=== PATIENT | female | born 1950 | race Caucasian/White ===

== ENCOUNTER 2020-08-18 17:04 | Emergency (ER) | payer MEDICARE ==
[2020-08-18 17:41] LABS: BILIRUBIN,URINE NEGATIVE (NEGATIVE); GLUCOSE, URINE (UA) NEGATIVE (NEGATIVE); KETONES,URINE (UA) 15 mg/dL (NEGATIVE); LEUKOCYTE ESTERASE, URINE NEGATIVE (NEGATIVE); NITRITE,URINE NEGATIVE (NEGATIVE); OCCULT BLOOD,URINE LARGE (NEGATIVE); PROTEIN,URINE TRACE mg/dL (NEGATIVE); UROBILINOGEN,URINE 0.2 (NORMAL) E.U./dL (NORMAL)
[2020-08-18 17:45] LABS: CLARITY,URINE CLEAR (CLEAR)
[2020-08-18 17:53] LABS: BACTERIA,URINE Rare /HPF (None Seen); RBC,URINE TNTC /HPF (0-5); SQUAMOUS EPITHELIAL CELL,UR RARE Squamous (<= Few)
--- NOTE | 2020-08-18 18:02 | ED Physician Documentation ---
History of Present Illness - Stated complaint Stated Complaint: ABD PX - Chief complaint Chief Complaint: Abd Pain - History obtained from History obtained from: Patient - History of Present Illness Timing: Prior to arrival - Additonal information Additional information: 70-year-old female presents to the emergency department for evaluation of 3 to 4 days left-sided abdominal pain. She does report bumping her lower abdomen on a table recently and she does have a bruise there but is unsure if it is the cause of her symptoms. Over the last few days she has had some nausea but no vomiting. She has had no black or bloody stools but has been having diarrhea. She has no cough, congestion dysuria urgency or frequency. Past medical history includes hypertension and hyperlipidemia. She also had breast cancer in 2009 for which she ultimately required a double mastectomy, radiation and chemotherapy. She also completed 5 years of tamoxifen Pt recently moved to [facility] with her from [place] Review of Systems Constitutional: reports: Reviewed and negative Eyes: reports: Reviewed and negative Ears: reports: Reviewed and negative Nose: reports: Rhinorrhea / runny nose Throat: reports: Reviewed and negative Cardiac: reports: Reviewed and negative Respiratory: reports: Reviewed and negative GI: reports: Abdominal Pain, Nausea, Diarrhea. denies: Vomiting, Constipation, Hematemesis, Bloody / black stool : denies: Dysuria, Frequency, Hesitancy Skin: reports: Abrasion (s) (bruising LLQ abdomen) Musculoskeletal: reports: Reviewed and negative Neurologic: reports: Reviewed and negative PD PAST MEDICAL HISTORY - Past Medical History Past Medical History: Yes Musculoskeletal: Osteoarthritis Other Past Medical History: Breast CA eight years ago. Bilateral mastectomy. - Past Surgical History Past Surgical History: Yes Ortho: Shoulder arthroplasty /[employer]: section, Mastectomy - Present Medications Home Medications: Ambulatory Orders Medication Instructions Recorded Confirmed Ibuprofen [Motrin] 400 mg PO TID PRN #25 tablet 08/18/20 - Allergies Allergies/Adverse Reactions: Allergies Allergy/AdvReac Type Severity Reaction Status Date / Time codeine AdvReac Hallucinati Verified 08/18/20 17:12 ons - Social History Does the pt smoke?: No Smoking Status: Never smoker Does the pt drink ETOH?: No Does the pt have substance abuse?: No - Immunizations Immunizations are current?: No - POLST Patient has POLST: No PD ED PE EXPANDED - General General: Alert, No acute distress, Well developed/nourished - Neck Neck: Supple w/out meningeal sx, No tenderness. No: Limited ROM - Cardiac Cardiac: Regular Rate, Radial strong equal, Pedal strong equal, Cap refill < 2 sec - Respiratory Respiratory: Clear to ausultation srikanth. No: Distress, Labored - Abdomen Abdomen: Normal Bowel sounds, Tender to palpation, LLQ (Mild tenderness left lower quadrant without guarding or rebound.) - Derm Derm: Bruising (Left lower quadrant of abdomen) - Extremities Extremities: Normal - Neuro Neuro: CNII-XII intact, Normal gait, Normal finger nose, Normal speech - GCS Eye Opening: Spontaneous Motor: Obeys Commands Verbal: Oriented Total: 15 Results - Vitals Vitals: Vital Signs - 24 hr 08/18/20 17:12 Temperature 37.4 C Heart Rate 76 Respiratory 18 Rate Blood Pressure 145/73 H O2 Saturation 97 Oxygen O2 Source Room air - Labs Labs: Laboratory Tests 08/18/20 08/18/20 08/18/20 17:30 18:05 18:05 WBC 13.1 H RBC 4.47 Hgb 13.9 Hct 40.6 MCV 90.8 MCH 31.1 H MCHC 34.2 RDW 12.5 Plt Count 231 MPV 10.9 H Neut # (Auto) 11.0 H Lymph # (Auto) 1.1 L [place] # (Auto) 0.9 Eos # (Auto) 0.0 Baso # (Auto) 0.0 Absolute Nucleated RBC 0.00 Nucleated RBC % 0.0 Sodium 139 Potassium 3.4 L Chloride 98 L Carbon Dioxide 25 Anion Gap 16.0 H BUN 16 Creatinine 1.2 H Estimated GFR (MDRD) 44 L Glucose 118 H Calcium 9.2 Total Bilirubin 0.8 AST 21 ALT 21 Alkaline Phosphatase 87 Total Protein 7.4 Albumin 4.0 Globulin 3.4 Albumin/Globulin Ratio 1.2 Lipase 48 Urine Color YELLOW Urine Clarity CLEAR Urine pH 6.0 Ur Specific [place] 1.020 Urine Protein TRACE Urine Glucose (UA) NEGATIVE Urine Ketones 15 H Urine Occult Blood LARGE H Urine Nitrite NEGATIVE Urine Bilirubin NEGATIVE Urine Urobilinogen 0.2 (NORMAL) Ur Leukocyte Esterase NEGATIVE Urine RBC TNTC H Urine WBC 0-3 Ur Squamous Epith Cells RARE Squamous Urine Bacteria Rare Ur Microscopic Review INDICATED Urine Culture Comments NOT INDICATED - Rads (name of study) CT abd Radiology: Final report received (4.5 mm left UPJ stone with moderate left-sided hydronephrosis and perinephric fat stranding. Multiple nonobstructing right renal calculi. No right-sided hydronephrosis. Normal appendix. No bowel obstruction no evidence of appendicitis or diverticulitis. No free fluid or air. Likely hepatic cys) PD MEDICAL DECISION MAKING - ED course Complexity details: reviewed results, re-evaluated patient, considered differential, d/w patient, d/w family ED course: 70-year-old female presents to the emergency department for evaluation of 3 days acute onset left flank pain and left lower quadrant abdominal pain. She initially had some mild leukocytosis but no fevers. She also expressed diarrhea. Past surgical history is significant for a only. A CT of her abdomen was performed and it does show a left UPJ stone with moderate left- sided hydronephrosis and perinephric fat stranding. There is no sign of infection in her urine. Patient was given Toradol here in the emergency department with moderate relief of pain. Her renal function is preserved. These findings were discussed at length with the patient and her . We did advise that she follow-up closely with urologist Dr. Frank in [place]. 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 The CT scan shows that you have stones in both of your kidneys. However there is a stone in your left ureter that is causing the pain and swelling of the left kidney. This is small enough that I suspect it will likely pass. I would like you to drink a lot of fluid and stay hydrated. To help with pain I would like you to take ibuprofen 400 mg with food 2-3 times a day. Please call Dr. Frank in [place] to schedule follow-up of your kidney stones and swelling of the kidney. If at any point you have fevers, suddenly severe or different pain, uncontrolled vomiting please return to the emergency department
[2020-08-18 18:14] LABS: BASOPHILS % (AUTO) 0.2 %; EOSINOPHILS % (AUTO) 0.3 %; HGB - HEMOGLOBIN 13.9 g/dL (12.0-16.0); LYMPHOCYTES # (AUTO) 1.1 10^3/uL (1.5-3.5); LYMPHOCYTES % (AUTO) 8.4 %; MEAN CORPUSCULAR HEMOGLOBIN 31.1 pg (27.0-31.0); MEAN CORPUSCULAR HGB CONC 34.2 g/dL (32.0-36.0); MEAN CORPUSCULAR VOLUME 90.8 fL (81.0-99.0); MEAN PLATELET VOLUME 10.9 fL (7.9-10.8); MONOCYTES # (AUTO) 0.9 10^3/uL (0.0-1.0); MONOCYTES % (AUTO) 6.9 %; NEUTROPHILS % (AUTO) 83.7 %; PLT - PLATELET COUNT 231 10^3/uL (130-450); RED BLOOD COUNT 4.47 10^6/uL (4.20-5.40); RED CELL DISTRIBUTION WIDTH 12.5 % (12.0-15.0); WHITE BLOOD COUNT 13.1 x10^3/uL (4.8-10.8)
[2020-08-18 18:26] LABS: ALBUMIN/GLOBULIN RATIO 1.2 (1.0-2.2); BILIRUBIN,TOTAL 0.8 mg/dL (0.2-1.0); CALCIUM 9.2 mg/dL (8.5-10.3); CREATININE 1.2 mg/dL (0.4-1.0); TOTAL PROTEIN 7.4 g/dL (6.7-8.2)
[2020-08-18] MEDS ORDERED: IOVERSOL 320 100 ML VIAL IVP ONE ×2 (18:31→18:51)
--- NOTE | 2020-08-18 19:06 | CT Report ---
PROCEDURE: Abdomen/Pelvis W INDICATIONS: LLQ abdominal pain CONTRAST: IV CONTRAST: Optiray 320 ml: 100 PO CONTRAST: *NO PO CONTRAST TECHNIQUE: After the administration of IV contrast, 5 mm thick sections acquired from the diaphragms to the symp hysis. 5 mm thick coronal and sagittal reformats were acquired. For radiation dose reduction, the f ollowing was used: automated exposure control, adjustment of mA and/or kV according to patient size. COMPARISON: None. FINDINGS: Image quality: Excellent. ABDOMEN: Lung bases: Scattered bibasilar atelectasis is seen. Heart size is normal. Solid organs: Liver is normal in size. Innumerable well-circumscribed hypodensities are seen scattere d throughout liver parenchyma and measures up to 1.1 cm in medial segment of left hepatic lobe and ma y represent hepatic cysts. Gallbladder is within normal limits. Spleen is normal in size and enhancem ent. Biliary system is non dilated. Pancreas enhances normally. No adrenal nodules. Left kidney shows normal size and enhancement without hydronephrosis. 4 mm nonobstructing stone is no mita in mid pole of right kidney. Large nonobstructing stone in mid to lower pole of right kidney is a lso seen measures 1.5 x 0.7 cm in size. There is moderate left-sided hydronephrosis and perinephric f at stranding. 4.5 mm left UPJ stone is seen. Bilateral ureters are within normal limits. Peritoneum and bowel: Bowel loops demonstrate normal wall thickness and caliber. No free fluid or a ir. Appendix is visualized and is within normal limits. No evidence of acute appendicitis or diverti culitis. Nodes and vessels: No retroperitoneal or mesenteric adenopathy by size criteria. Aorta and inferior vena cava are normal in size. Miscellaneous: No ventral hernias. PELVIS: Genitourinary: Bladder wall thickness is normal. Miscellaneous: No inguinal hernias or adenopathy. Bones: No suspicious bony lesions. No vertebral body compression fractures. IMPRESSION: 1. 4.5 mm left UPJ stone with moderate left-sided hydronephrosis and perinephric fat stranding. 2. Multiple nonobstructing right renal calculi. No right-sided hydronephrosis. 3. Normal appendix. No bowel obstruction. No evidence of acute appendicitis or diverticulitis. No josie e fluid of free air. 4. Innumerable well-circumscribed hypodensities scattered throughout liver parenchyma as above, which may represent hepatic cysts. Reviewed by: Nadeem Rowland MD on 08/18/2020 6:04 PM [facility] Approved by: Nadeem Rowland MD on 08/18/2020 6:04 PM [facility] Station ID: [id number]
[2020-08-18] MEDS ORDERED: KETOROLAC 30 MG/ML VIAL IVP STA (19:23)
[2020-08-18 19:57] VITALS: BP 138/69
== END 2020-08-18 20:06 | disposition home or self-care (01) ==
LOC: ED 17:04
DX: N13.2 Hydronephrosis with renal and ureteral calculous obstruction (principal); R19.7 Diarrhea, unspecified; S30.1XXA Contusion of abdominal wall, initial encounter; W22.03XA Walked into furniture, initial encounter; I10 Essential (primary) hypertension; E78.5 Hyperlipidemia, unspecified; Z08 Encounter for follow-up examination after completed treatment for malignant neoplasm; Z85.3 Personal history of malignant neoplasm of breast
CPT/HCPCS: 36415; 74177; 80053; 81001; 83690; 85025; 96374; 99284; Q9967; 81003; 87086

== ENCOUNTER 2021-08-11 12:25 | Outpatient (CLI) | payer MEDICARE ==
--- NOTE | 2021-08-22 10:26 | Ultrasound Report ---
LIMITED ULTRASOUND OF LEFT BREAST: 08/11/2021 CLINICAL: Palpable left breast lump. No prior exams were available for comparison. Color flow and real-time ultrasound of the left breast were performed. Randall scale images of the surinder l-time examination were reviewed. Status post left mastectomy. No sonographic abnormalities visualized at the patient directed area of palpable concern at the 4 o'clock position/lower outer quadrant. This is in area of prior surgical sc ar. IMPRESSION: NEGATIVE There is no sonographic evidence of malignancy. There is no abnormality seen in the left breast to correspond with the area of clinical concern and p alpable abnormality at 4 o'clock position along the chest wall in area of prior surgery, however, rec ommend clinical follow up for persistent or worsening symptoms, or development of any clinically susp icious findings. Findings and recommendations were conveyed to the patient during today's evaluation. This exam was interpreted at Station ID: [id number]. Electronically Signed By: Todd Holloway M.D. aty/:08/19/2021 17:39:19 Ultrasound BI-RADS: 1 Negative BI-RADS CATEGORY: (1) - 1 Unspecified - other recall n/a LATERALITY: (B)
== END 2021-08-11 12:26 | disposition home or self-care (01) ==
LOC: DI 12:25
PROVIDERS: ATTEND Internal Medicine
DX: N63.23 Unspecified lump in the left breast, lower outer quadrant (principal)

== ENCOUNTER 2021-10-03 13:00 | Outpatient (CLI) | payer MEDICARE ==
--- NOTE | 2021-10-03 13:37 | XRAY Report ---
PROCEDURE: Wrist 3 View LT INDICATIONS: LEFT WRIST PAIN TECHNIQUE: 3 views of the wrist were acquired. COMPARISON: None. FINDINGS: BONES: No acute, displaced fracture or dislocation. The carpal bones are normally aligned. Moderate o steophytosis of the first carpal metacarpal articulation. SOFT TISSUES: No focal abnormality. IMPRESSION: 1.No acute osseous abnormality. Reviewed by: Mo Juan MD on 10/03/2021 1:35 PM [facility] Approved by: Mo Juan MD on 10/03/2021 1:35 PM [facility] Station ID: [id number]
== END 2021-10-03 23:59 | disposition home or self-care (01) ==
LOC: DI.N 13:00
PROVIDERS: ATTEND Physician Assistant
DX: M25.532 Pain in left wrist (principal)

== ENCOUNTER 2023-05-23 08:52 | Day surgery (SDC) | payer MEDICARE ==
[2023-05-23] MEDS ORDERED: LACTATED RINGERS 1,000 ML IV ONE ×2 (09:21→10:48)
--- NOTE | 2023-05-23 09:31 | ANESTHESIA ---
Pre-Anesthesia VS, & Labs - Diagnosis screeing - Procedure colonoscopy Vital Signs: Temp Pulse Resp BP Pulse Ox O2 Flow Rate 36.3 C L 76 16 154/72 H 96 05/23/23 09:15 05/23/23 09:15 05/23/23 09:15 05/23/23 09:15 05/23/23 09:15 Height: 5 ft 3 in Weight (kg): 64 kg Body Mass Index: 25.0 BMI Classification: Overweight - NPO >8 hours - Is Patient ?: No Home Medications and Allergies Home Medications: Ambulatory Orders Metoprolol Succinate 125 mg PO DAILY 05/22/23 Pravastatin [Pravachol] 80 mg PO DAILY 05/22/23 Metoprolol Succinate 125 mg PO DAILY 05/22/23 Pravastatin [Pravachol] 80 mg PO DAILY 05/22/23 Allergies/Adverse Reactions: Allergies Allergy/AdvReac Type Severity Reaction Status Date / Time codeine AdvReac Hallucinati Verified 05/23/23 09:13 ons Anes History & Medical History - Anesthetic History Anesthesia Complications: reports: No previous complications Family history of Anesthesia Complications: Denies Family history of Malignant Hyperthermia: Denies - Medical History Cardiovascular: reports: Hypertension, High cholesterol Pulmonary: reports: None Gastrointestinal: reports: None Urinary: reports: None Musculoskeletal: reports: Osteoarthritis, Osteopenia Endocrine/Autoimmune: reports: None Skin: reports: None Smoking Status: Never smoker - Surgical History Gynecologic: reports: Mastectomy, Other Orthopedic: reports: Shoulder arthroplasty Exam General: Alert, Oriented x3, Cooperative Dental: WNL Mouth Openin Fingerbreadth Neck Mobility: Normal Mallampati classification: I Thyromental Distance: 4-6 cm Respiratory: Lungs clear Cardiovascular: Regular rate Plan Anesthesia Type: General, Total IV Consent for Procedure(s) Verified and Reviewed: Yes Code Status: Attempt Resuscitation ASA classification: 2-Mild systemic disease Is this case an emergency?: No
[2023-05-23 11:10] VITALS: BP 132/67; O2SAT 97
--- NOTE | 2023-05-23 13:20 | ANESTHESIA POST OP EVALUATION ---
Anesthesia Post Eval - Post Anesthesia Eval Vitals: Last Vital Signs Temp 36.0 C L 05/23/23 11:07 Pulse 74 05/23/23 11:07 Resp 16 05/23/23 11:07 BP 132/67 H 05/23/23 11:07 Pulse Ox 97 05/23/23 11:07 O2 Flow Rate CV Function Including HR & BP: Stable Pain Control: Satisfactory Nausea & Vomiting: Negative Mental Status: Baseline Respiratory Status: Airway Patent Hydration Status: Satisfactory Anesthesia Complications: None
== END 2023-05-23 08:53 | disposition home or self-care (01) ==
LOC: SDS 08:52
PROVIDERS: ATTEND Surgery
PROC: 0DBK8ZX Excision of Ascending Colon, Via Natural or Artificial Opening Endoscopic, Diagnostic (ICD-10-PCS; principal; 2023-05-23 10:00)
DX: Z12.11 Encounter for screening for malignant neoplasm of colon (principal); D12.2 Benign neoplasm of ascending colon; K63.89 Other specified diseases of intestine; Z80.0 Family history of malignant neoplasm of digestive organs; I10 Essential (primary) hypertension
CPT/HCPCS: 45385; J7120

== ENCOUNTER 2023-12-20 16:00 | Outpatient (CLI) | payer MEDICARE ==
--- NOTE | 2023-12-20 18:55 | XRAY Report ---
PROCEDURE: Hip w/Pelvis 2-3V RT INDICATIONS: BACK PAIN TECHNIQUE: An AP view of the pelvis and a frog-leg lateral view of the hip were acquired. COMPARISON: None. FINDINGS: Bones: No fractures or dislocations. No suspicious bony lesions. Moderate to severe degenerative ar thritis with severe axial joint space loss and osteophytes. Soft tissues: No suspicious soft tissue calcifications or masses. IMPRESSION: Moderate to severe degenerative arthritis of the right hip Reviewed by: Randolph Griffith MD on 12/20/2023 6:53 PM PDT Approved by: Randolph Griffith MD on 12/20/2023 6:53 PM PDT Station ID: [id number]
== END 2023-12-20 16:01 | disposition home or self-care (01) ==
LOC: DI 16:00
PROVIDERS: ATTEND Internal Medicine
DX: M16.11 Unilateral primary osteoarthritis, right hip (principal)

== ENCOUNTER 2024-03-13 12:04 | Outpatient (CLI) | payer MEDICARE ==
[2024-03-13 17:38] LABS: BASOPHILS % (AUTO) 0.2 %; EOSINOPHILS # (AUTO) 0.2 10^3/uL (0.0-0.7); EOSINOPHILS % (AUTO) 1.7 %; HCT - HEMATOCRIT 39.4 % (37.0-47.0); HGB - HEMOGLOBIN 12.9 g/dL (12.0-16.0); LYMPHOCYTES # (AUTO) 2.1 10^3/uL (1.5-3.5); LYMPHOCYTES % (AUTO) 23.9 %; MEAN CORPUSCULAR HEMOGLOBIN 31.1 pg (27.0-31.0); MEAN CORPUSCULAR HGB CONC 32.7 g/dL (32.0-36.0); MEAN CORPUSCULAR VOLUME 94.9 fL (81.0-99.0); MONOCYTES # (AUTO) 0.7 10^3/uL (0.0-1.0); MONOCYTES % (AUTO) 7.5 %; NEUTROPHILS # (AUTO) 5.8 10^3/uL (1.5-6.6); NEUTROPHILS % (AUTO) 66.6 %; PLT - PLATELET COUNT 263 10^3/uL (130-450); RED BLOOD COUNT 4.15 10^6/uL (4.20-5.40); RED CELL DISTRIBUTION WIDTH 13.3 % (12.0-15.0); WHITE BLOOD COUNT 8.7 x10^3/uL (4.8-10.8)
[2024-03-13 18:07] LABS: ALBUMIN 4.2 g/dL (3.2-5.5); ALBUMIN/GLOBULIN RATIO 1.2 (1.0-2.2); ALKALINE PHOSPHATASE 94 IU/L (42-121); ALT ALANINE AMINOTRANSFERASE 20 IU/L (10-60); AST ASPARTATE AMINOTRANSFERASE 23 IU/L (10-42); BILIRUBIN,TOTAL 0.6 mg/dL (0.2-1.0); BUN - BLOOD UREA NITROGEN 14 mg/dL (6-20); CALCIUM 9.9 mg/dL (8.5-10.3); CARBON DIOXIDE - CO2 30 mmol/L (21-32); CHLORIDE 104 mmol/L (101-111); CHOL/HDL RATIO 3.3 (<4.4); CHOLESTEROL 184 mg/dL; CREATININE 0.9 mg/dL (0.6-1.3); GFR - MDRD 61 (>89); GLUCOSE 100 mg/dL (74-104); HDL CHOLESTEROL 55 mg/dL; LDL CHOLESTEROL,CALCULATED 106 mg/dL; LDL/HDL RATIO 1.9 (<4.4); POTASSIUM 3.7 mmol/L (3.5-4.5); SODIUM 140 mmol/L (135-145); TOTAL PROTEIN 7.8 g/dL (6.4-8.9); TRIGLYCERIDES 114 mg/dL (48-352); VLDL CHOLESTEROL 23 mg/dL
[2024-03-13 18:15] LABS: THYROID STIMULATING HORMONE 1.55 uIU/mL (0.34-5.60)
[2024-03-13 20:17] LABS: ESTIMATED AVERAGE GLUCOSE 108 mg/dL (70-100); HEMOGLOBIN A1c% 5.4 % (4.27-6.07)
== END 2024-03-13 12:05 | disposition home or self-care (01) ==
LOC: LAB.N 12:04
PROVIDERS: ATTEND Internal Medicine
DX: C50.919 Malignant neoplasm of unspecified site of unspecified female breast (principal); E78.5 Hyperlipidemia, unspecified; R73.01 Impaired fasting glucose; R00.2 Palpitations; Z86.16 Personal history of COVID-19; Z79.899 Other long term (current) drug therapy
CPT/HCPCS: 36415; 80053; 80061; 83036; 83721; 83735; 84443; 85025

== ENCOUNTER 2024-06-06 09:15 | Outpatient (CLI) | payer MEDICARE | END 2024-06-06 09:16 | disposition home or self-care (01) | LOC: DI 09:15 | PROVIDERS: ATTEND Internal Medicine Cardiovascular Disease | DX: I47.10 Supraventricular tachycardia, unspecified (principal); I51.7 Cardiomegaly | CPT/HCPCS: 93307 ==